=== PATIENT | female | born 1980 | race Two or more races ===

== ENCOUNTER 2019-05-02 12:34 | Emergency (ER) | payer OTHER ==
[~2019-05-02] VITALS: Ht 157.5 cm; Wt 82.6 kg
[~2019-05-02 12:34] MED LIST: KETO10TA2 PO; ORPH100T PO; PROCARDIA XL; PROCARDIA90 MG/BLIS; TOPROL XL100 M1
[2019-05-02] MEDS ORDERED: AVAPRO75 MG (13:11)
== END 2019-05-02 16:07 | disposition home or self-care (01) ==
LOC: ER 12:34
DX: I10 Essential (primary) hypertension (principal); M94.0 Chondrocostal junction syndrome [Tietze]